=== PATIENT | female | born 1995 | race Two or more races ===

== ENCOUNTER 2019-12-19 18:54 | Emergency (ER) | payer SELFPAY ==
[2019-12-19 19:11] VITALS: BP 124/69; PULSE 114
[2019-12-19] MEDS ORDERED: Ketorolac 60 MG/2 ML SDV IM ONE (19:21)
--- NOTE | 2019-12-19 19:27 | EDM.PDOC ---
ED HPI GENERAL MEDICAL PROBLEM - General Chief Complaint: Respiratory Problem Stated Complaint: shakey fever Time Seen by Provider: 12/19/19 19:11 Source of Information: Reports: Patient, RN Notes Reviewed History Limitations: Reports: No Limitations - History of Present Illness INITIAL COMMENTS - FREE TEXT/NARRATIVE: Patient is a 24-year-old female who presents to the ED for evaluation of a fever , cough. Patient states that she developed symptoms yesterday very suddenly, she notes a sore throat, hot flashes, headache, body aches, fever, and feeling very nauseated. Patient states that she was exposed to a coworker who had influenza B around 2 weeks ago. Patient did not get her flu shot this year. 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 Patient has been using Tylenol and ibuprofen, with little to no relief. She is not complaining of any actual vomiting, or any sort of dysuria, and she states there is no chance that she could be . She does not have a regular provider that she sees. Her last dose of any sort of [id number] medication was Tylenol around 6 PM. Other Treatments [employer]: dayquil, tylenol Chest Pain Score (Numeric/FACES): 5 Back Pain Score (Numeric/FACES): 5 - Related Data Allergies Allergy/AdvReac Type Severity Reaction Status Date / Time prednisone Allergy Mild Hives Verified 02/22/16 14:49 Home Meds: Home Meds Oseltamivir [Tamiflu] 75 mg PO BID #9 cap 12/19/19 [Rx] Past Medical History Gastrointestinal History: Reports: GERD Psychiatric History: Reports: Depression Other Psychiatric History: Prior history of depression. - Past Surgical History HEENT Surgical History: Reports: Tonsillectomy Female Surgical History: Reports: Section Social & Family History - Family History Family Medical History: Noncontributory - Tobacco Use Smoking Status *Q: Current Every Day Smoker Years of Tobacco use: 2 Packs/Tins Daily: 0.1 - Caffeine Use Caffeine Use: Reports: Soda, Tea - Recreational Drug Use Recreational Drug Type: Reports: Marijuana/Hashish Other Recreational Drug Type: occasionally ED ROS GENERAL - Review of Systems Review Of Systems: See Below Constitutional: Reports: Fever, Chills, Malaise, Diaphoresis, Decreased Appetite HEENT: Reports: Throat Pain. Denies: Throat Swelling Respiratory: Reports: Cough. Denies: Shortness of Breath Cardiovascular: Denies: Chest Pain GI/Abdominal: Reports: Nausea. Denies: Abdominal Pain, Constipation, Diarrhea, Vomiting : Denies: Dysuria, Frequency, Urgency Musculoskeletal: Reports: Back Pain Neurological: Reports: Headache ED EXAM, GENERAL - Physical Exam Exam: See Below Exam Limited By: No Limitations General Appearance: Alert, WD/WN, No Apparent Distress Eye Exam: Bilateral Eye: EOMI, Normal Inspection, PERRL Ears: Normal External Exam, Normal Canal, Hearing Grossly Normal, Normal TMs Nose: Normal Inspection Throat/Mouth: Normal Inspection, Normal Lips, Normal Teeth, Normal Gums, Normal Oropharynx, Normal Voice, No Airway Compromise Head: Atraumatic, Normocephalic Neck: Normal Inspection Respiratory/Chest: No Respiratory Distress, Lungs Clear, Normal Breath Sounds, No Accessory Muscle Use, Chest Non-Tender Cardiovascular: Normal Peripheral Pulses, Regular Rate, Rhythm, No Murmur Peripheral Pulses: 3+: Radial (L), Radial (R) GI/Abdominal: Normal Bowel Sounds, Soft, Non-Tender, No Distention, No Mass Extremities: Normal Inspection, Normal Capillary Refill Neurological: Alert, Oriented, Normal Cognition, No Motor/Sensory Deficits Psychiatric: Normal Affect, Normal Mood Skin Exam: Warm, Dry, Intact, Normal Color, No Rash Course - Vital Signs Last Recorded V/S: Last Vital Signs Temp 101.8 F H 12/19/19 19:09 Pulse 114 H 12/19/19 19:09 Resp 20 12/19/19 19:09 BP 124/69 12/19/19 19:09 Pulse Ox 98 12/19/19 19:09 - Orders/Labs/Meds Orders: Active Orders 24 hr Category Date Time Status CULTURE STREP A CONFIRMATION [RM] Stat Lab 12/19/19 19:21 Results STREP SCRN A RAPID W CULT CONF [RM] Stat Lab 12/19/19 19:12 Ordered Oseltamivir [Tamiflu] Med 12/19/19 19:54 Once 75 mg PO ONETIME ONE Medication Orders Oseltamivir Phosphate (Tamiflu) 75 mg PO ONETIME ONE Stop: 12/19/19 19:55 Meds: Medications Generic Name Dose Route Start Last Admin Trade Name Freq PRN Reason Stop Dose Admin Oseltamivir Phosphate 75 mg 12/19/19 19:54 Tamiflu PO 12/19/19 19:55 ONETIME ONE Discontinued Medications Generic Name Dose Route Start Last Admin Trade Name Janna PRN Reason Stop Dose Admin Ketorolac Tromethamine 60 mg 12/19/19 19:21 Toradol IM 12/19/19 19:22 ONETIME ONE - Re-Assessments/Exams Free Text/Narrative Re-Assessment/Exam: 12/19/19 19:26 Patient presents to the ED for the evaluation of complaints. Influenza swab will be checked as well as a strep swab. Clinically however I would diagnose her positive for influenza even without the swab. Patient will likely be treated with Tamiflu. I did order 60 mg IM Toradol for initial management. 12/19/19 19:54 Patient is positive for influenza A, but negative for strep at this time, culture will be sent for confirmation. Departure - Departure Time of Disposition: 19:55 Disposition: Home, Self-Care 01 Condition: Fair Clinical Impression: Influenza A - Discharge Information *PRESCRIPTION DRUG MONITORING PROGRAM REVIEWED*: No *COPY OF PRESCRIPTION DRUG MONITORING REPORT IN PATIENT ESTRELLA: No Prescriptions: Oseltamivir [Tamiflu] 75 mg PO BID #9 cap Instructions: Influenza, Adult, [id number] Referrals: PCP,None [Primary Care Provider] - Forms: ED Department Discharge, ED Return to Work/School Form Additional Instructions: You have been evaluated in the ED for cold like symptoms and fever. You did test positive for influenza A. Your strep screen was negative, but will be sent for culture for confirmation. You will be called in a few days if you should need antibiotics if the culture will grow out positive for strep. Please try to limit your exposure to others until you are 24 hours fever free. You may take 500 mg Tylenol or 600 mg ibuprofen every 6 hours as needed for general aches/fever. Do not exceed 4000 mg Tylenol or 3200 mg ibuprofen in a 24 -hour time span. You were started on Tamiflu in the ER, please take the medication as directed, 1 tab twice daily for 5 days. Please try to increase fluid intake as stick with a bland diet until you can tolerate normal foods. Please return to the ED if your symptoms should change or worsen. Sepsis Event Note - Evaluation Sepsis Screening Result: No Definite Risk - Focused Exam Vital Signs: Vital Signs Temp Pulse Resp BP Pulse Ox 12/19/19 19:09 101.8 F H 114 H 20 124/69 98 Date Exam was Performed: 12/19/19 Time Exam was Performed: 19:54 - My Orders Last 24 Hours: My Active Orders 12/19/19 19:12 STREP SCRN A RAPID W CULT CONF [RM] Stat 12/19/19 19:21 CULTURE STREP A CONFIRMATION [RM] Stat 12/19/19 19:54 Oseltamivir [Tamiflu] 75 mg PO ONETIME ONE - Assessment/Plan Last 24 Hours: My Active Orders 12/19/19 19:12 STREP SCRN A RAPID W CULT CONF [RM] Stat 12/19/19 19:21 CULTURE STREP A CONFIRMATION [RM] Stat 12/19/19 19:54 Oseltamivir [Tamiflu] 75 mg PO ONETIME ONE
[2019-12-19] MEDS ORDERED: Oseltamivir 75 MG Cap PO ONE (19:54)
== END 2019-12-19 20:18 | disposition home or self-care (01) ==
LOC: JD.ED 18:54
DX: J10.1 Influenza due to other identified influenza virus with other respiratory manifestations (principal); F17.210 Nicotine dependence, cigarettes, uncomplicated; Z88.8 Allergy status to other drugs, medicaments and biological substances
CPT/HCPCS: 87081; 87430; 87804; 99283; A9270; J1885; 96372